=== PATIENT | female | born 1950 | race African-American/Black ===

== ENCOUNTER → 2019-01-28 | Day surgery (SDC) | payer MEDICARE ==
[2019-01-26 10:47] LABS: BASOPHILS % 0.4 % (0.0-1.0); EOSINOPHILS # (AUTO) 0.2 (0.0-0.4); HEMATOCRIT 39.8 % (34.2-44.1); HEMOGLOBIN 12.6 g/dL (12.0-16.0); LYMPHOCYTES # (AUTO) 1.8 (1.0-3.2); LYMPHOCYTES % 33.3 % (18.0-39.1); MEAN CORPUSCULAR HEMOGLOBIN 27.4 pg (28-32); MEAN CORPUSCULAR HGB CONC 31.7 g/dL (31-35); MEAN CORPUSCULAR VOLUME 86.5 fL (81-99); MONOCYTES # (AUTO) 0.5 (0.2-0.8); MONOCYTES % 9.3 % (4.4-11.3); NEUTROPHILS # (AUTO) 2.9 (2.1-6.9); NEUTROPHILS % 52.6 % (38.7-80.0); PLATELET COUNT 221 x10e3/uL (140-360); RED CELL DISTRIBUTION WIDTH 16.1 % (11.7-14.4)
[2019-01-26 11:05] LABS: INR 0.9; PROTHROMBIN TIME 12.6 seconds (11.9-14.5)
[2019-01-26 11:12] LABS: ALBUMIN 3.3 g/dL (3.5-5.0); ALBUMIN/GLOBULIN RATIO 0.9 (0.8-2.0); ANION GAP 10.7 mmol/L (8-16); CALCIUM 9.7 mg/dL (8.4-10.2); CREATININE, SERUM 1.19 mg/dL (0.57-1.11); POTASSIUM 4.7 mmol/L (3.5-5.1)
--- NOTE | 2019-01-26 11:49 | NUR ---
Dr. Cher Wilde notified of creatinine 1.19 and eGFR of 55. No new orders at this time.
[~2019-01-28] VITALS: Ht 175.3 cm; Wt 117.9 kg
[2019-01-28] VITALS (12 sets, daily range): BP systolic 98–133; BP diastolic 57–77
[~2019-01-28] MED LIST: ASPERCREME 1035.4 GM TOP; ASPIR 8181 MG PO; ATORVASTATIN CA40 MG PO; CALTRATE 600 W1 EACH PO; CENTRUM SILVER1 EAC3 PO; CITALOPRAM HBR40 MG PO; CLOPIDOGREL BISULFATE 75 MG TAB ONE; FENTANYL CITRATE/PF 100MCG/2 ML INJ ONE; GABAPENTIN300 MG PO; GLIMEPIRIDE2 MG PO; HEPARIN SOD (PORCINE) 1000 UNIT/ML 30ML ONE; HEPARIN SOD/SOD CHLORIDE 2,000 ML ONE; IOPAMIDOL 300MG/ML 100 ML INFUS..BTL IV ONE; IOPAMIDOL 370 MG/ML 200 ML INFUS..BTL INJ ONE; LEVOTHYROXINE75 MCG PO; LIDOCAINE HCL 2% LOCAL 20 ML VIAL ONE; LISINOPRIL5 MG PO; MIDAZOLAM HCL 2 MG/2 ML VIAL ONE; NITROGLYCERIN/D5W 200 MCG/ML 250 ML ONE; OMEPRAZOLE20 M1 PO; OXYCODONE HCL20 M1 PO; PANTOPRAZOLE SO40 MG PO; SODIUM CHLORIDE 0.9% 1000ML 1,000 ML ONE; THERA GESIC CRE TP; TRAZODONE HCL100 MG PO; ULTRAM 50MG50 MG PO; VICKS VAPORUB O50 GM TOP; [UNRECOGNIZED DRUG - OTHER]
--- OUTSIDE RECORDS SUMMARY | 2019-01-28 06:18 | XMS REPORT | Clinical Summary ---
Author Author Austin Jain Organization [facility] Address Unknown Phone Unavailable Care Team Providers Care Eyeglass Inspector Name Role Phone Dhiraj Wilde MD PCP Allergies Comments Active Allergy Reactions Severity Noted Date Codeine 02/18/2018 Hydrocodone-Acetaminophen GI 02/17/2018 Intolerance Medications End Date Status Medication Sig Dispensed Refills Start Date Active gabapentin (NEURONTIN) Take 600 mg 0 300 mg capsule by mouth 3 (three) times a day. Active glimepiride (AMARYL) 2 MG Take 2 mg by 0 tablet mouth daily before breakfast. Active citalopram (CeleXA) 40 MG Take 40 mg by 0 tablet mouth every morning. Active pantoprazole (PROTONIX) Take 40 mg by 0 40 MG EC tablet mouth every morning. Active levothyroxine (SYNTHROID, Take 75 mcg 0 LEVOXYL) 75 mcg tablet by mouth every morning. Active lisinopril Take 5 mg by 0 (PRINIVIL,ZESTRIL) 5 mg mouth every tablet morning. Active multivitamin (THERAGRAN) Take 1 tablet 0 tablet by mouth every morning. Active calcium carbonate Chew 1 tablet 0 (CALCIUM 500) 500 mg every calcium (1,250 mg) morning. chewable tablet Active aspirin (ECOTRIN) 81 MG Take 81 mg by 0 enteric coated tablet mouth daily. Active traZODone (DESYREL) 100 Take 100 mg 0 MG tablet by mouth nightly. Active atorvastatin (LIPITOR) 40 Take 40 mg by 0 MG tablet mouth daily. Active oxyCODone (ROXICODONE) 5 Take 5 mg by 0 MG immediate release mouth 4 tablet (four) times a day as needed. Active traMADol (ULTRAM) 50 mg Take 50 mg by 0 tablet mouth 4 (four) times a day as needed. 02/18/2018 Discontinued (Med List Cleanup) levothyroxine (SYNTHROID, Take 100 mcg 0 LEVOXYL) 100 mcg tablet by mouth daily. 02/20/2018 Discontinued (Stop Taking at Discharge) traZODone (DESYREL) 100 Take 200 mg 0 MG tablet by mouth nightly. 02/20/2018 Discontinued (Stop Taking at Discharge) traMADol (ULTRAM) 50 mg Take 50 mg by 0 tablet mouth 2 (two) times a day. 02/18/2018 Discontinued (Med List Cleanup) lisinopril Take 10 mg by 0 (PRINIVIL,ZESTRIL) 10 mg mouth daily. tablet 02/20/2018 Discontinued (Stop Taking at Discharge) nitrofurantoin, Take 100 mg 0 macrocrystal-monohydrate, by mouth 2 8 (MACROBID) 100 MG capsule (two) times a day. For 7 days 02/20/2018 Discontinued traMADol (ULTRAM) 50 mg Take 1 tablet 40 tablet 1 tablet (50 mg total) 8 by mouth every 6 (six) hours as needed for moderate pain for up to 10 days. 03/02/2018 traMADol (ULTRAM) 50 mg Take 1 tablet 30 tablet 0 tablet (50 mg total) 8 by mouth every 8 (eight) hours as needed for moderate pain for up to 10 days. 12/23/2018 Discontinued (Med List Cleanup) atorvastatin (LIPITOR) 10 Take 10 mg by 0 MG tablet mouth daily. Active Problems Problem Noted Date Chest pain 12/23/2018 Fever 02/17/2018 Encounters Care Team Description Date Type Specialty Jarred Bledsoe MD Allencherril, Paul Joseph, MD Chest pain, unspecified type (Primary Dx) 12/23/2018 Emergency Emergency Medicine - 12/25/2018 Sam Asif DO Chest pain, unspecified type (Primary Dx) 09/18/2018 Emergency Emergency Medicine 09/18/2018 Travel Jarred Bledsoe MD Allencherril, Aris Leon MD Fever, unspecified fever cause (Primary Dx); Hepatitis; Generalized pain 02/17/2018 Emergency General Internal Medicine - 02/20/2018 after 01/27/2018 Immunizations Name Administration Dates Next Due FLUCELVAX QUAD PF (0.5mL 02/20/2018 syringe) Pneumococcal Conjugate 02/20/2018 13-Valent Family History Medical History Relation Name Comments Cancer Brother Hypertension Mother Cancer Sister Relation Name Status Comments Brother Mother Sister Social History Date Tobacco Use Types Packs/Day Years Used Former Smoker Smokeless Tobacco: Never Used Comments: 15-20 years Quit Drinks/Week oz/Week Comments Alcohol Use No Sex Assigned at Date Recorded Not on file Industry Job Start Date Occupation Not on file Not on file Not on file Travel End Travel History Travel Start No recent travel history available. Last Filed Vital Signs Reading Time Taken Comments Vital Sign 141/63 12/24/2018 11:15 AM CDT Blood Pressure 64 12/24/2018 11:15 AM CDT Pulse 36.8 C (98.2 F) 12/24/2018 11:15 AM CDT Temperature 16 12/24/2018 11:15 AM CDT Respiratory Rate 100% 12/24/2018 11:15 AM CDT Oxygen Saturation - - Inhaled Oxygen Concentration 118 kg (260 lb) 12/23/2018 12:17 PM CDT Weight 175.3 cm (5' 9") 12/23/2018 12:17 PM CDT Height 38.4 12/23/2018 12:17 PM CDT Body Mass Index Plan of Treatment Health Maintenance Due Date Last Done Comments BREAST CANCER SCREENING 2001 COLONOSCOPY SCREENING 2001 SHINGLES VACCINES (#1) 2001 INFLUENZA VACCINE 01/08/2019 02/20/2018 65+ PNEUMOCOCCAL VACCINE 02/20/2019 02/20/2018 (2 of 2 - PPSV23) Procedures Comments Procedure Name Priority Date/Time Associated Diagnosis POC GLUCOSE Routine 12/24/2018 11:15 AM CDT ESTIMATED GFR Routine 12/24/2018 7:50 AM CDT BASIC METABOLIC PANEL Routine 12/24/2018 7:50 AM CDT HC COMPLETE BLD COUNT Routine 12/24/2018 W/AUTO DIFF 7:50 AM CDT TROPONIN Timed 12/24/2018 7:50 AM CDT POC GLUCOSE Routine 12/24/2018 5:48 AM CDT ECG 12-LEAD Routine 12/24/2018 12:22 AM CDT TROPONIN Timed 12/23/2018 9:54 PM CDT ECG 12-LEAD Routine 12/23/2018 8:49 PM CDT POC GLUCOSE Routine 12/23/2018 8:45 PM CDT TROPONIN Timed 12/23/2018 6:16 PM CDT POC GLUCOSE Routine 12/23/2018 5:32 PM CDT XR CHEST 2 VW STAT 12/23/2018 3:37 PM CDT XR KNEE 4+ VW RIGHT STAT 12/23/2018 3:37 PM CDT US DUPLEX VENOUS LOWER STAT 12/23/2018 EXTREMITY RIGHT 2:56 PM CDT ECG 12-LEAD STAT 12/23/2018 2:22 PM CDT ESTIMATED GFR STAT 12/23/2018 2:10 PM CDT B NATRIURETIC PEPTIDE STAT 12/23/2018 2:10 PM CDT TROPONIN STAT 12/23/2018 2:10 PM CDT COMPREHENSIVE METABOLIC STAT 12/23/2018 PANEL 2:10 PM CDT HC COMPLETE BLD COUNT STAT 12/23/2018 W/AUTO DIFF 2:10 PM CDT TROPONIN Timed 09/18/2018 6:15 PM CDT XR CHEST 2 VW STAT 09/18/2018 2:46 PM CDT ESTIMATED GFR STAT 09/18/2018 1:50 PM CDT B NATRIURETIC PEPTIDE STAT 09/18/2018 1:50 PM CDT TROPONIN STAT 09/18/2018 1:50 PM CDT COMPREHENSIVE METABOLIC STAT 09/18/2018 PANEL 1:50 PM CDT HC COMPLETE BLD COUNT STAT 09/18/2018 W/AUTO DIFF 1:50 PM CDT ECG ED PRELIMINARY Routine 09/18/2018 INTERPRETATION 12:54 PM CDT ECG 12-LEAD STAT 09/18/2018 12:29 PM CDT HEPATIC FUNCTION PANEL Routine 02/20/2018 6:48 AM CDT POC GLUCOSE Routine 02/20/2018 6:27 AM CDT POC GLUCOSE Routine 02/19/2018 9:42 PM CDT US ABDOMEN COMPLETE STAT 02/19/2018 9:38 PM CDT POC GLUCOSE Routine 02/19/2018 4:02 PM CDT POC GLUCOSE Routine 02/19/2018 11:24 AM CDT ESTIMATED GFR Routine 02/19/2018 8:52 AM CDT COMPREHENSIVE METABOLIC Routine 02/19/2018 PANEL 8:52 AM CDT POC GLUCOSE Routine 02/19/2018 6:12 AM CDT POC GLUCOSE Routine 02/18/2018 9:14 PM CDT POC GLUCOSE Routine 02/18/2018 5:50 PM CDT HEPATITIS ACUTE PANEL Routine 02/18/2018 7:[address] ABDOMEN PELVIS WO STAT 02/18/2018 CONTRAST 4:59 AM CDT ECG ED PRELIMINARY Routine 02/17/2018 INTERPRETATION 9:17 PM CDT HCG QUALITATIVE, URINE STAT 02/17/2018 SCREEN 8:01 PM CDT URINALYSIS SCREEN AND STAT 02/17/2018 MICROSCOPY, WITH REFLEX 8:01 PM CDT TO CULTURE ZZESTIMATED GFR STAT 02/17/2018 7:47 PM CDT LIPASE LEVEL STAT 02/17/2018 7:47 PM CDT COMPREHENSIVE METABOLIC STAT 02/17/2018 PANEL 7:47 PM CDT HC COMPLETE BLD COUNT STAT 02/17/2018 W/AUTO DIFF 7:47 PM CDT ECG 12-LEAD STAT 02/17/2018 7:13 PM CDT PARTIAL THROMBOPLASTIN STAT 02/17/2018 TIME (PTT) 7:08 PM CDT PROTHROMBIN TIME WITH INR STAT 02/17/2018 7:08 PM CDT URINE CULTURE STAT 02/17/2018 7:08 PM CDT after 01/27/2018 Results * POC glucose (12/24/2018 11:15 AM CDT) Only the most recent of 11 results within the time period is included. [facility] POC glucose 121 (H) 65 - 100 mg/dL [place] Comment: JESSICA Meter ID: [id number] [place] Regional Transportation Manager: [facility] Specimen Performing Organization Address City/State/Zipcode Phone Number [facility] [place] [place] DEPARTMENT OF [address] [place] [id number] PATHOLOGY AND GENOMIC MEDICINE [place] JESSICA [place] [address] * Estimated GFR (12/24/2018 7:50 AM CDT) Only the most recent of 4 results within the time period is included. [facility] Estimated GFR 49 (A) mL/min/1.73 m2 [place] Comment: JESSICA [facility] G1 >=90 Normal or high G2 60-89Mildly decreased C2g24-02 Mildly to moderately decreased T9b22-64 Moderately to severely decreased G4 15-29Severely decreased G5 <15Kidney failure The eGFR was calculated using the Chronic Kidney Disease Epidemiology Collaboration (CKD-EPI) equation. Interpretation is based on recommendations of the National Kidney Foundation-Kidney Disease Outcomes Quality Initiative (NKF-KDOQI) published in 2014. Specimen Plasma specimen Performing Organization Address City/State/Zipcode Phone Number [facility] [place] [place] DEPARTMENT OF [address] [place] [address] PATHOLOGY AND GENOMIC MEDICINE [facility] [address] [place] [address] * Troponin (12/24/2018 7:50 AM CDT) Only the most recent of 6 results within the time period is included. [facility] Troponin <0.006 0.000 - 0.040 ng/mL [place] Comment: [facility] changed methodology effective: HOSPITAL 10/14/2018 at 10:00 am The new method has a 99th percentile cutoff of 0.040 ng/mL Specimen Plasma specimen Performing Organization Address City/[facility] Phone Number [facility] OF [address] [place] [address] PATHOLOGY AND GENOMIC MEDICINE [address] * CBC with platelet and differential (12/24/2018 7:50 AM CDT) Only the most recent of 4 results within the time period is included. [facility] WBC 5.4 4.2 - 11.0 k/uL [facility] RBC 4.96 4.04 - 5.86 m/uL [facility] HGB 13.2 11.5 - 15.3 g/dL [facility] HCT 41.8 34.0 - 45.0 % [facility] MCV 84.3 80.0 - 98.0 fL [facility] MCH 26.6 (L) 27.0 - 34.0 pg [facility] MCHC 31.6 31.5 - 36.5 g/dL [facility] RDW - SD 45.8 37.0 - 51.0 fL [facility] MPV 9.8 7.4 - 10.4 fL [facility] Platelet count 255 150 - 400 k/uL [facility] Nucleated RBC 0.00 /100 WBC [facility] Neutrophils 59.2 36.0 - 66.0 % [facility] Lymphocytes 26.7 24.0 - 44.0 % [facility] Monocytes 10.5 (H) 0.0 - 6.0 % [facility] Eosinophils 3.0 0.0 - 6.0 % [facility] Basophils 0.4 0.0 - 1.2 % [facility] Immature 0.2 0.0 - 1.0 % [place] granulocytes [facility] Specimen Blood Performing Organization Address City/[facility] Phone Number [facility] [place] [place] [address] PATHOLOGY AND GENOMIC MEDICINE [address] * Basic metabolic panel (12/24/2018 7:50 AM CDT) Sodium 141 135 - 150 mEq/L [facility] Potassium 4.2 3.5 - 5.0 mEq/L [facility] Chloride 103 98 - 112 mEq/L [facility] CO2 30 24 - 31 mmol/L [facility] Anion gap 8@ANIO 7 - 15 mEq/L [facility] BUN 15 7 - 18 mg/dL [facility] Creatinine 1.30 (H) 0.50 - 0.90 mg/dL [facility] Glucose 127 (H) 65 - 100 mg/dL [facility] Calcium 9.8 8.8 - 10.2 mg/dL [facility] Specimen Plasma specimen Performing Organization Address City/[facility]/[place] [address] PATHOLOGY AND GENOMIC MEDICINE [address] * ECG 12 lead (12/24/2018 12:22 AM CDT) Only the most recent of 5 results within the time period is included. Ventricular 67 [facility] rate Atrial rate 67 [facility] CA interval 174 [facility] QRSD interval 70 [facility] QT interval 408 [facility] QTC interval 431 [facility] P axis 1 64 [facility] QRS axis 1 49 [facility] T wave axis 48 [facility] EKG impression Normal sinus rhythm-Normal [facility] ECG-In automated comparison with ECG of 23-DEC-2018 20:49,-No significant change was found- Specimen Narrative Performed At Performing Organization Address City/[facility] Phone Number [facility] [address] [place] [address] * XR Chest 2 Vw (12/23/2018 3:37 PM CDT) Only the most recent of 2 results within the time period is included. Specimen Narrative Performed At EXAMINATION:XR CHEST 2 VW [facility] CLINICAL HISTORY: chest pain COMPARISON:09/18/2018. FINDINGS: Two views of the chest demonstrate normal cardiomediastinal silhouette. Pulmonary vasculature is within normal limits. No consolidation or pleural effusions identified. There is no evidence of pneumothorax. Regional osseous structures is unremarkable. IMPRESSION: No radiographic evidence of acute cardiopulmonary process or pneumonia. [id number] Procedure Note Hm Interface, Radiology Results Incoming - 12/23/2018 3:42 PM CDT EXAMINATION: XR CHEST 2 VW CLINICAL HISTORY: chest pain COMPARISON: 09/18/2018. FINDINGS: Two views of the chest demonstrate normal cardiomediastinal silhouette. Pulmonary vasculature is within normal limits. No consolidation or pleural effusions identified. There is no evidence of pneumothorax. Regional osseous structures is unremarkable. IMPRESSION: No radiographic evidence of acute cardiopulmonary process or pneumonia. [id number] Performing Organization Address City/[facility]/Zipcode Phone Number [facility] [address] [place] [address] * XR Knee 4+ Vw Right (12/23/2018 3:37 PM CDT) Specimen Narrative Performed At XR KNEE 4VW RIGHT [facility] CLINICAL INDICATION:knee pain COMPARISON:None. IMPRESSION: No acute fracture or traumatic injury is identified in the knee. There is no joint effusion or significant osteoarthritis. Periarticular soft tissues are unremarkable for age. *[id number] Procedure Note Interface, Radiology Results Incoming - 12/23/2018 3:42 PM CDT XR KNEE 4 VW RIGHT CLINICAL INDICATION: knee pain COMPARISON: None. IMPRESSION: No acute fracture or traumatic injury is identified in the knee. There is no joint effusion or significant osteoarthritis. Periarticular soft tissues are unremarkable for age. *[id number] Performing Organization Address City/State/Zipcode Phone Number [facility] [address] [place] [address] * Us duplex venous lower extremity (12/23/2018 2:56 PM CDT) Specimen Narrative Performed At EXAMINATION:US DUPLEX VENOUS LOWER EXTREMITY RIGHT [facility] CLINICAL HISTORY:leg pain swelling COMPARISON:None. TECHNIQUE:Grayscale, color Doppler, and spectral waveform analysis of the right lower extremity deep venous system was performed. The common femoral, superficial femoral, proximal deep femoral, greater saphenous, and popliteal veins were evaluated. The calf veins were also evaluated. FINDINGS: RIGHT LOWER EXTREMITY Common Femoral Vein: No evidence of deep venous thrombosis. There is good compressibility and response to augmentation. Profunda Femoral Vein: No evidence of deep venous thrombosis. There is good compressibility and response to augmentation. Greater Saphenous Vein: No evidence of deep venous thrombosis. There is good compressibility and response to augmentation. Superficial Femoral Vein: No evidence of deep venous thrombosis. There is good compressibility and response to augmentation. Popliteal Vein: No evidence of deep venous thrombosis. There is good compressibility and response to augmentation. Calf Veins: The calf veins are patent. Romero's Cyst: No Romero's Cyst. Other findings: None Left Common Femoral Vein: No evidence of deep venous thrombosis. There is good compressibility and response to augmentation. IMPRESSION: 1.Normal exam. No right lower extremity deep venous thrombosis. [id number] Procedure Note Interface, Radiology Results Incoming - 12/23/2018 3:00 PM CDT EXAMINATION: US DUPLEX VENOUS LOWER EXTREMITY RIGHT CLINICAL HISTORY: leg pain swelling COMPARISON: None. TECHNIQUE: Grayscale, color Doppler, and spectral waveform analysis of the right lower extremity deep venous system was performed. The common femoral, superficial femoral, proximal deep femoral, greater saphenous, and popliteal veins were evaluated. The calf veins were also evaluated. FINDINGS: RIGHT LOWER EXTREMITY Common Femoral Vein: No evidence of deep venous thrombosis. There is good compressibility and response to augmentation. Profunda Femoral Vein: No evidence of deep venous thrombosis. There is good compressibility and response to augmentation. Greater Saphenous Vein: No evidence of deep venous thrombosis. There is good compressibility and response to augmentation. Superficial Femoral Vein: No evidence of deep venous thrombosis. There is good compressibility and response to augmentation. Popliteal Vein: No evidence of deep venous thrombosis. There is good compressibility and response to augmentation. Calf Veins: The calf veins are patent. Romero's Cyst: No Romero's Cyst. Other findings: None Left Common Femoral Vein: No evidence of deep venous thrombosis. There is good compressibility and response to augmentation. IMPRESSION: 1. Normal exam. No right lower extremity deep venous thrombosis. [facility]-[id number] Performing Organization Address City/State/Zipcode Phone Number [facility] [address] [place] [address] * B natriuretic peptide (12/23/2018 2:10 PM CDT) Only the most recent of 2 results within the time period is included. Pathologist [facility] [place] BNP 18 0 - 100 pg/mL [facility] Specimen Blood Performing Organization Address City/State/Zipcode Phone Number [facility] [place] [place] DEPARTMENT OF [address] [place] [address] PATHOLOGY AND GENOMIC MEDICINE [address] * Comprehensive metabolic panel (12/23/2018 2:10 PM CDT) Only the most recent of 4 results within the time period is included. Pathologist [facility] [place] Sodium 142 135 - 150 mEq/L [facility] Potassium 3.9 3.5 - 5.0 mEq/L [facility] Chloride 102 98 - 112 mEq/L [facility] CO2 30 24 - 31 mmol/L [facility] Anion gap 10@ANIO 7 - 15 mEq/L [facility] BUN 13 7 - 18 mg/dL [facility] Creatinine 1.30 (H) 0.50 - 0.90 mg/dL [facility] Glucose 128 (H) 65 - 100 mg/dL [facility] Calcium 9.6 8.8 - 10.2 mg/dL [facility] Protein 7.8 6.3 - 8.3 g/dL [facility] Albumin 3.8 3.5 - 5.0 g/dL [facility] A/G ratio 1.0 0.7 - 3.8 [facility] Alkaline 105 (H) 0 - 104 U/L [place] phosphatase [facility] AST 23 10 - 35 U/L [facility] ALT 15 5 - 50 U/L [facility] Total bilirubin 0.7 0.2 - 1.2 mg/dL [facility] Specimen Plasma specimen Performing Organization Address City/State/[facility] Phone Number [facility] [place] [place] DEPARTMENT OF [facility] [place] [address] PATHOLOGY AND GENOMIC MEDICINE [address] * ECG ED Preliminary Interpretation - Not an Order (09/18/2018 12:54 PM CDT) Only the most recent of 2 results within the time period is included. Narrative Performed At Sam Asif DO 09/25/2018 12:47 AM ECG ED Preliminary Interpretation - Not an Order Performed by: Sam Asif DO Authorized by: Sam Asif DO ECG reviewed by ED Physician in the absence of a precision honer: yes Interpretation: Interpretation: normal Rate: ECG rate:85 ECG rate assessment: normal Rhythm: Rhythm: sinus rhythm Ectopy: Ectopy: none QRS: QRS axis:Normal QRS intervals:Normal Conduction: Conduction: normal ST segments: ST segments:Normal T waves: T waves: normal * Hepatic function panel (02/20/2018 6:48 AM CDT) Albumin 2.8 (L) 3.5 - 5.0 g/dL [facility] [place] [place] DEPARTMENT OF PATHOLOGY AND GENOMIC MEDICINE Total bilirubin 1.0 0.2 - 1.2 mg/dL [facility] [place] [place] DEPARTMENT OF PATHOLOGY AND GENOMIC MEDICINE Bilirubin 0.4 0.0 - 0.4 mg/dL [facility] [place] [place] DEPARTMENT direct OF PATHOLOGY AND GENOMIC MEDICINE Alkaline 148 (H) 0 - 104 U/L [facility] [place] [place] DEPARTMENT phosphatase OF PATHOLOGY AND GENOMIC MEDICINE Protein 6.6 6.3 - 8.3 g/dL [facility] [place] [place] DEPARTMENT OF PATHOLOGY AND GENOMIC MEDICINE ALT 220 (H) 5 - 50 U/L [facility] [place] [place] DEPARTMENT OF PATHOLOGY AND GENOMIC MEDICINE AST 95 (H) 10 - 35 U/L [facility] [place] [place] DEPARTMENT OF PATHOLOGY AND GENOMIC MEDICINE Specimen Plasma specimen Performing Organization Address City/State/Zipcode Phone Number [facility] [place] [place] DEPARTMENT OF [address] [place] [address] PATHOLOGY AND GENOMIC MEDICINE * US Abdomen Complete (02/19/2018 9:38 PM CDT) Specimen Narrative Performed At EXAM: US ABDOMEN COMPLETE [facility] CLINICAL DATA:Hepatitis (non A), Jaundiceabd painfever or biliary surgery or gallstones COMPARISON: CT from 02/18/2018. FINDINGS: LIVER:The liver demonstrates normal echogenicity without focal mass or intrahepatic biliary ductal dilatation. MPV:Doppler evaluation of the portal vein demonstrates normal hepatopetal flow. GALLBLADDER:The gallbladder is without evidence of calculi. The gallbladder wall is not thickened and there is no pericholecystic fluid. CBD: Common bile duct is not dilated measuring 7 mm. PANCREAS:The visualized portions of the pancreas are within normal limits. SPLEEN:The spleen is homogeneous and not enlarged. KIDNEYS: There is no hydronephrosis. There are areas of cortical scarring in the right kidney better seen on recent CT. AORTA:The visualized upper abdominal aorta demonstrates no evidence of ectasia or aneurysm. IVC:The visualized portions of the inferior vena cava are unremarkable. ASCITES: No abnormal abdominal fluid collections are visualized. There is no evidence of ascites. PLEURAL EFFUSION:There are no pleural effusions. IMPRESSION: Normal abdominal ultrasound examination. [facility]-[id number] Procedure Note Interface, Radiology Results Incoming - 02/19/2018 11:34 PM CDT EXAM: US ABDOMEN COMPLETE CLINICAL DATA: Hepatitis (non A), Jaundice abd pain fever or biliary surgery or gallstones COMPARISON: CT from 02/18/2018. FINDINGS: LIVER: The liver demonstrates normal echogenicity without focal mass or intrahepatic biliary ductal dilatation. MPV: Doppler evaluation of the portal vein demonstrates normal hepatopetal flow. GALLBLADDER: The gallbladder is without evidence of calculi. The gallbladder wall is not thickened and there is no pericholecystic fluid. CBD: Common bile duct is not dilated measuring 7 mm. PANCREAS: The visualized portions of the pancreas are within normal limits. SPLEEN: The spleen is homogeneous and not enlarged. KIDNEYS: There is no hydronephrosis. There are areas of cortical scarring in the right kidney better seen on recent CT. AORTA: The visualized upper abdominal aorta demonstrates no evidence of ectasia or aneurysm. IVC: The visualized portions of the inferior vena cava are unremarkable. ASCITES: No abnormal abdominal fluid collections are visualized. There is no evidence of ascites. PLEURAL EFFUSION: There are no pleural effusions. IMPRESSION: Normal abdominal ultrasound examination. [facility]-[id number] Performing Organization Address City/[facility] Phone Number [facility] [address] [place] [address] * Hepatitis acute panel (02/18/2018 7:31 AM CDT) Hepatitis A IgM Non-reactive Non-reactive [facility] DEPARTMENT OF PATHOLOGY AND GENOMIC MEDICINE Hepatitis B Non-reactive Non-reactive [facility] DEPARTMENT core IgM OF PATHOLOGY AND GENOMIC MEDICINE Hepatitis B Non-reactive Non-reactive [facility] DEPARTMENT surface Ag OF PATHOLOGY AND GENOMIC MEDICINE Hepatitis C Ab Non-reactive Non-reactive [facility] DEPARTMENT OF PATHOLOGY AND GENOMIC MEDICINE Specimen Serum Performing Organization Address [facility] Phone Number [facility] DEPARTMENT OF [address] [place], [place] [phone] PATHOLOGY AND GENOMIC MEDICINE * CT Abdomen Pelvis Wo Contrast (02/18/2018 4:59 AM CDT) Specimen Narrative Performed At EXAMINATION:CT ABDOMEN PELVIS WO CONTRAST RADIANT CLINICAL HISTORY:pain cholestasis TECHNIQUE: Multiple axial images of the abdomen and pelvis were obtained without intravenous administration of iodinated contrast. Sagittal and coronal computerized reformatted images were also obtained. The lack of intravenous contrast reduces the sensitivity of detecting solid organ disease. CT imaging was performed with iterative reconstruction technique and/or automated exposure control to reduce radiation dose. COMPARISON:None. IMPRESSION: Mild bibasilar atelectasis/scarring. Patient is status post cholecystectomy. Liver, spleen, pancreas, adrenal glands are normal. Areas of cortical thinning are seen of the kidneys bilaterally, compatible with sequelae of previous insults. No hydronephrosis or hydroureter. The bladder is normal. No free intraperitoneal fluid or air. Small hiatal hernia. Diverticulosis is seen without diverticulitis. No gastrointestinal tract obstruction. No acute osseous abnormalities. Mild degenerative change of the right hip. CONCLUSION: No emergent findings. [facility]-[id number] Procedure Note Interface, Radiology Results Incoming - 02/18/2018 5:12 AM CDT EXAMINATION: CT ABDOMEN PELVIS WO CONTRAST CLINICAL HISTORY: pain cholestasis TECHNIQUE: Multiple axial images of the abdomen and pelvis were obtained without intravenous administration of iodinated contrast. Sagittal and coronal computerized reformatted images were also obtained. The lack of intravenous contrast reduces the sensitivity of detecting solid organ disease. CT imaging was performed with iterative reconstruction technique and/or automated exposure control to reduce radiation dose. COMPARISON: None. IMPRESSION: Mild bibasilar atelectasis/scarring. Patient is status post cholecystectomy. Liver, spleen, pancreas, adrenal glands are normal. Areas of cortical thinning are seen of the kidneys bilaterally, compatible with sequelae of previous insults. No hydronephrosis or hydroureter. The bladder is normal. No free intraperitoneal fluid or air. Small hiatal hernia. Diverticulosis is seen without diverticulitis. No gastrointestinal tract obstruction. No acute osseous abnormalities. Mild degenerative change of the right hip. CONCLUSION: No emergent findings. [facility]-[id number] Performing Organization Address City/State/Zipcode Phone Number [facility] [address] [place] [address] * Urinalysis screen and microscopy, with reflex to culture (02/17/2018 8:01 PM CDT) Specimen site Clean catch [facility] [place] [place] DEPARTMENT OF PATHOLOGY AND GENOMIC MEDICINE Color, UA Brooke [facility] [place] [place] DEPARTMENT OF PATHOLOGY AND GENOMIC MEDICINE Appearance, UA Clear [facility] [place] [place] DEPARTMENT OF PATHOLOGY AND GENOMIC MEDICINE Specific 1.015 1.001 - 1.035 [facility] [place] [place] DEPARTMENT gravity, [facility] PATHOLOGY AND GENOMIC MEDICINE pH, UA 7.0 5.0 - 8.5 [facility] [place] [place] DEPARTMENT OF PATHOLOGY AND GENOMIC MEDICINE Protein, UA 1+ (A) Negative [facility] [place] [place] DEPARTMENT OF PATHOLOGY AND GENOMIC MEDICINE Glucose, UA Negative Negative [facility] [place] [place] DEPARTMENT OF PATHOLOGY AND GENOMIC MEDICINE Ketones, UA Negative Negative [facility] [place] [place] DEPARTMENT OF PATHOLOGY AND GENOMIC MEDICINE Bilirubin, UA Negative Negative [facility] [place] [place] DEPARTMENT OF PATHOLOGY AND GENOMIC MEDICINE Blood, UA Negative Negative [facility] [place] [place] DEPARTMENT OF PATHOLOGY AND GENOMIC MEDICINE Nitrite, UA Negative Negative [facility] [place] [place] DEPARTMENT OF PATHOLOGY AND GENOMIC MEDICINE Urobilinogen, 4.0 (A) <2.0 [facility] [place] [place] DEPARTMENT UA OF PATHOLOGY AND GENOMIC MEDICINE Leukocyte Negative Negative [facility] [place] [place] DEPARTMENT esterase, UA OF PATHOLOGY AND GENOMIC MEDICINE Epithelial Many /HPF [facility] [place] [place] DEPARTMENT cells, UA OF PATHOLOGY AND GENOMIC MEDICINE WBC, UA 1 0 - 5 /HPF [facility] [place] [place] DEPARTMENT OF PATHOLOGY AND GENOMIC MEDICINE RBC, UA 5 (A) 0 - 5 /HPF [facility] [place] [place] DEPARTMENT OF PATHOLOGY AND GENOMIC MEDICINE Bacteria, UA None seen None seen [facility] [place] [place] DEPARTMENT OF PATHOLOGY AND GENOMIC MEDICINE Yeast, UA None seen [facility] [place] [place] DEPARTMENT OF PATHOLOGY AND GENOMIC MEDICINE Yeast with None seen [facility] [place] [place] DEPARTMENT pseudohyphae, OF PATHOLOGY UA AND GENOMIC MEDICINE Specimen Urine Performing Organization Address City/State/[facility] [place] [address] PATHOLOGY AND GENOMIC MEDICINE * hCG qualitative, urine screen (02/17/2018 8:01 PM CDT) Pathologist [facility] [place] hCG Negative Negative [facility] [place] [place] DEPARTMENT qualitative, Comment: OF PATHOLOGY urine The manufacturers stated AND GENOMIC sensitivity of HcG test for MEDICINE serum is >/=10 mIU/ml and urine is >/=20mIU/ml. Specimen Urine Performing Organization Address [facility] [place] [address] PATHOLOGY AND GENOMIC MEDICINE * Estimated GFR (02/17/2018 7:47 PM CDT) [facility] GFR Non Af Amer 35 (A) mL/min/1.73 m2 [facility] [place] [place] DEPARTMENT OF PATHOLOGY AND GENOMIC MEDICINE GFR Af Amer 42 (A) mL/min/1.73 m2 [facility] [place] [place] DEPARTMENT Comment: OF PATHOLOGY Chronic kidney disease: <60 AND GENOMIC mL/min/1.73m2 MEDICINE Kidney failure: <15 mL/min/1.73m2 The estimated GFR is calculated from the IDMS-traceable Modification of Diet in Renal Disease Equation. The accuracy of the calculation is poor when the creatinine is normal. Calculated values >90 mL/min/1.73m2 are not reported. This equation has not been validated in children (<18 years), women, the elderly (>70 years), or ethnic groups other than Caucasians and Americans. Specimen Plasma specimen Performing Organization Address City/State/[place] [address] PATHOLOGY AND [facility] MEDICINE * Lipase level (02/17/2018 7:47 PM CDT) Pathologist [facility] [place] Lipase 14 13 - 60 U/L [facility] [place] [place] DEPARTMENT OF PATHOLOGY AND GENOMIC MEDICINE Specimen Plasma specimen Performing Organization Address City/State/Zipcode Phone Number [address] [place] [address] PATHOLOGY AND GENOMIC MEDICINE * Partial thromboplastin time, activated (02/17/2018 7:08 PM CDT) Pathologist [facility] [place] PTT 30.0 23.0 - 36.0 sec [facility] [place] [place] DEPARTMENT Comment: OF PATHOLOGY PTT therapeutic range for AND GENOMIC unfractionated heparin is MEDICINE 61.0-112.0 seconds which corresponds to Anti-Xa 0.3-0.7 U/ml. Note:Change in Panic Value The PTT Panic Value is changing from 110 sec. to 100 sec. due to new instrumentation and reagents. Correlation studies have been performed to validate this result. Specimen Blood Performing Organization Address City/State/Zipcode Phone Number [facility] [address] [facility]. [place] [phone] PATHOLOGY AND GENOMIC MEDICINE * Prothrombin time with INR (02/17/2018 7:08 PM CDT) Pathologist [facility] [place] Prothrombin 14.6 12.0 - 15.0 sec [facility] [place] [place] DEPARTMENT time OF PATHOLOGY AND GENOMIC MEDICINE INR 1.12 0.92 - 1.12 [facility] [place] [place] DEPARTMENT Comment: OF PATHOLOGY For patients on anticoagulant AND GENOMIC therapy, reference ranges MEDICINE below: Indication: INR Value Treatment of Venous Thrombosis, 2.0-3.0 pulmonary emboli, or prophylaxis of a venous thrombosis, or systemic emboli. High dose, high risk patients 3.0-4.5 with mechanical valves. NOTE:INR values over 3.0 are sometimes associated with gastrointestinal hemorrhage, especially values over 4.0. Specimen Blood Performing Organization Address City/[facility]/Zipcode Phone Number [facility] [address] [place] [phone] PATHOLOGY AND GENOMIC MEDICINE * Urine culture (02/17/2018 7:08 PM CDT) Pathologist [facility] [place] Urine culture SEE COMMENTComment: [facility] [place] [place] DEPARTMENT Bacteriuria screen negative. 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
--- NOTE | 2019-01-28 11:02 | NUR ---
1102 bedside report received from CATINA Kilpatrick. Alert oriented and appropriate, PERRLA, respirations even and unlabored to room air. Pulses x4 extremities equal and strong. Pedal pulses PT/DP X4 Cap fill brisk < 3 sec. Bilateral Mynx sites dry and intact No gross issues pain,pallor pressure or dysrhythmia.Dwon till 1345 ok to dc at 1500pm Skin warm and dry integrity appears D/I. IV 20g to rt hand iv infusing via iv controller at 100cchr. Presents healthy w/o s/s of infiltration or complaint. Abdomen soft and supple. pt offered toileting, denies need to urinate or defecate. No personal affects with patient. Family grandson Hung . Pt and family verbalizes understanding of POC.. Currently w/o complaint of pain or need. Patient introduced to cath team and brief summary provided to team. c/o back pain unable to stay down to 1500pm. 1110 Fentanyl 25mcq ivp slowly with immediate relief for low back pain. Void in bedpan qs Assist with po intake tolerating well. ds/catina
--- NOTE | 2019-01-28 11:10 | NUR ---
1110 states pain 8/10 for low back pain had "back shots" for low back pain unable to stay HOB down or legs straight and supine. Informed Md orders 25mcq Fentanyl ivp q1hr while in recovery. Immediate recovery noted from pain.ds/rn
--- NOTE | 2019-01-28 12:10 | NUR ---
1210 c/o back pain lower bilateral Mynx sites dry and intact. Medicated 25mcq ivp slowly with immediate relief achieved. ds/rn
--- NOTE | 2019-01-28 13:10 | NUR ---
1310 8/10 c/o back pain medicated Fentynal 25mcq ivp slowly with immediate results. ds/rn
--- NOTE | 2019-01-28 14:10 | NUR ---
1410p medicated for 8/10 back pain Last dose 25mcg Fentanyl for total 100mcq Fentanyl in laboratory analyst recovery area. Bilateral Mynx sites remain intact. 1415p denies pain ok for dc at 3pm. Grandson remains at bedside and POC with dc planning completing. Tolerating po intake. Back to baseline orientation iv removed.Bilateral dressing remains intact. ds/rn
--- NOTE | 2019-01-28 15:00 | NUR ---
1500p Pt meets DC criteria. assessed for s/s of complication and presence of hematoma. warm, dry, no discolor, and pulses present. IV removed from rt hand. Distal tip appears intact. VS WNL. Pt denies pain, sob, or need at this time. Family at bedside Review of discharge paperwork and follow up instructions. Verbalized understanding. Pt to car with RN escort.With w/c. ds/rn
--- NOTE | 2019-03-02 14:53 | Operative Report ---
DATE OF PROCEDURE: 01/28/2019 SURGEON: Paolo Wilde MD INDICATION FOR PROCEDURES: Claudication. PROCEDURES PERFORMED: 1. Coronary angiography. 2. Left heart catheterization. 3. Abdominal aortography. 4. Bilateral peripheral angiography. 5. DRINK BOX MECHANIC and stenting of right common and external iliac arteries. 6. Secondary thrombectomy. 7. Femoral angiography. 8. Vascular closure device. 9. Moderate sedation 120 minutes. PROCEDURE DETAILS: The patient was brought to the cardiac catheterization laboratory in a fasting state. Bilateral groins were prepped and draped in sterile fashion. Given more severe claudication symptoms on the right side, we initially started with accessing the left common femoral artery under ultrasound and fluoroscopic guidance, although we were able to get blood return. The wire was not advancing appropriately and after the wire was advanced with a loop and 5-Frisian sheath was inserted. There was no good blood return through the sheath. I suspected subintimal entry or severe peripheral vascular disease in the area, so the sheath was removed and the Mynx vascular closure device was applied to the access site. This resulted in good hemostasis. We then decided to proceed with accessing the right common femoral artery using modified Seldinger technique and ultrasound guidance. A 6-Frisian sheath was inserted in the right common femoral artery without significant difficulty. Abdominal aortography was performed after advancing a 5-Frisian Omni Flush catheter into the abdominal aorta. This demonstrated severe 99% stenosis of the common and external iliac artery on the right side and 100% EVENT MARKETING REPRESENTATIVE of the external iliac artery on the left side extending into the common femoral artery. There were collaterals from the internal iliac artery to the common femoral artery, which provided good flow to the left lower extremity. Given the angiographic results, we decided to proceed with DRINK BOX MECHANIC and stenting of the right iliac system. The lesion was ballooned using first Ultraverse 6.0 x 100 mm balloon at nominal pressures, followed by stenting with 8.0 x 60 and 8.0 x 40 mm overlapping stents, followed by post-dilation using 8.0 x 80 mm balloon. This resulted in an excellent angiographic result without residual, dissection, thrombus, or spasm. We measured the gradient across the iliac artery and there was no significant gradient residual. Dual antiplatelet therapy was administered in the cathode builder using aspirin and Plavix loading dose. ACT near 300 was maintained throughout the procedure using IV boluses of heparin as needed. After 6-Frisian short sheath was inserted into the right common femoral artery and [place] Advantage wire was advanced into the descending aorta, coronary angiography was performed using JL4 and JR4 catheters. Multiple orthogonal views were taken of each coronary artery. Left heart catheterization was performed using a pigtail catheter. All catheters were removed over a wire. We then proceeded with intervention to the right iliac artery as described above. There was no significant coronary artery disease and left ventricular end-diastolic pressure was noted to be 10 mmHg. SIGNIFICANT FINDINGS: 1. 99% stenosis of right common and external iliac. 2. 100% EVENT MARKETING REPRESENTATIVE of the left external iliac. 3. 100% EVENT MARKETING REPRESENTATIVE of the right anterior tibial. GRAFTS AND IMPLANTS: None. SPECIMEN REMOVED: None. COMPLICATIONS: None. ESTIMATED BLOOD LOSS: 100 mL. FINAL RECOMMENDATIONS: 1. Continue aspirin 81 mg daily for life and Plavix 75 mg daily for at least 3 months. 2. Continue optimal medical therapy and risk factor control. 3. Plan for staged intervention to the left external iliac artery in the future. 4. Follow up in clinic 2 weeks postprocedure. MD LILO Dc/ALLA /[id number]
== END | disposition home or self-care (01) ==
LOC: CATH LAB 06:11
PROVIDERS: ATTEND Internal Medicine
DX: I25.118 Atherosclerotic heart disease of native coronary artery with other forms of angina pectoris (principal); I70.212 Atherosclerosis of native arteries of extremities with intermittent claudication, left leg; Z01.812 Encounter for preprocedural laboratory examination; Z79.82 Long term (current) use of aspirin; E11.9 Type 2 diabetes mellitus without complications; I25.2 Old myocardial infarction; Z88.6 Allergy status to analgesic agent; Z88.5 Allergy status to narcotic agent; Z88.8 Allergy status to other drugs, medicaments and biological substances; M19.90 Unspecified osteoarthritis, unspecified site; I10 Essential (primary) hypertension; Z83.3 Family history of diabetes mellitus; Z82.49 Family history of ischemic heart disease and other diseases of the circulatory system; Z84.1 Family history of disorders of kidney and ureter; Z79.84 Long term (current) use of oral hypoglycemic drugs
CPT/HCPCS: 36415; 37221; 75625; 75716; 76937 ×2; 80053; 85025; 85610; 93458; C1725 ×2; C1760; C1769 ×2; C1876 ×3; C1887; J1644; J2001; J2250; J3010; J7030; Q9967 ×2; 36247

== ENCOUNTER → 2019-03-25 | Day surgery (SDC) | payer MEDICARE ==
[2019-03-23 11:21] LABS: INR 0.92; PROTHROMBIN TIME 12.9 seconds (11.9-14.5)
[2019-03-23 11:22] LABS: BASOPHILS % 0.2 % (0.0-1.0); EOSINOPHILS # (AUTO) 0.2 (0.0-0.4); EOSINOPHILS % 4.2 % (0.0-6.0); HEMATOCRIT 37.7 % (34.2-44.1); HEMOGLOBIN 11.9 g/dL (12.0-16.0); LYMPHOCYTES # (AUTO) 1.3 (1.0-3.2); LYMPHOCYTES % 28.5 % (18.0-39.1); MEAN CORPUSCULAR HEMOGLOBIN 27.1 pg (28-32); MEAN CORPUSCULAR HGB CONC 31.6 g/dL (31-35); MEAN CORPUSCULAR VOLUME 85.9 fL (81-99); MONOCYTES # (AUTO) 0.5 (0.2-0.8); MONOCYTES % 11.6 % (4.4-11.3); NEUTROPHILS # (AUTO) 2.5 (2.1-6.9); NEUTROPHILS % 55.3 % (38.7-80.0); PLATELET COUNT 238 x10e3/uL (140-360); RED BLOOD COUNT 4.39 x10e6/uL (3.6-5.1)
[2019-03-23 11:28] LABS: ALBUMIN 3.5 g/dL (3.5-5.0); ANION GAP 11.5 mmol/L (8-16); CALCIUM 9.8 mg/dL (8.4-10.2); CREATININE, SERUM 1.3 mg/dL (0.57-1.11); POTASSIUM 4.5 mmol/L (3.5-5.1)
--- NOTE | 2019-03-23 17:26 | NUR ---
Dr. Cher Wilde notified of creatinine 1.30 and eGFR 49. No new orders at this time.
[~2019-03-25] VITALS: Ht 175.3 cm; Wt 122.9 kg
[2019-03-25] VITALS (14 sets, daily range): BP systolic 114–155; BP diastolic 66–99
[~2019-03-25] MED LIST changes: -CLOPIDOGREL BISULFATE 75 MG TAB ONE; +CLOPIDOGREL75 MG PO; -IOPAMIDOL 370 MG/ML 200 ML INFUS..BTL INJ ONE; +MORPHINE SULFATE INJ 4 MG/ML INJ 1ML ONE; +VERAPAMIL HCL 2.5 MG/ML 2 ML VIAL ONE
--- NOTE | 2019-03-25 13:13 | NUR ---
1313bedside report received from Dionna DOMINIQUE. Identifierx2.Alert oriented and appropriate, PERRLA, respirations even and unlabored to room air. Pulses x4 extremities equal and strong. Pedal pulses PT/DP X 4 doppler and marked. Cap fill brisk < 3 sec. Skin warm and dry integrity appears D/I IV 20g to left arm iv infusing via controller till 1liter up, presents healthy w/o s/s of infiltration or complaint. Abdomen soft and supple. pt offered toileting, denies need to urinate or defecate. No personal affects with patient. Family grandson Promise . Pt and family verbalizes understanding of POC. Currently w/o complaint of pain or need. Left Pedal and left radial TR band down at 230 dc home at 5pm. niecy/kelechi
--- NOTE | 2019-03-25 14:00 | NUR ---
1400p c/o pain to left leg 01/17 Medicated Morphine sulfate 2mg ivp with immediate relief Void qs Tolerated po intake. ds/rn
--- NOTE | 2019-03-25 15:00 | NUR ---
1500 Left TR band wrist RADIAL Compression removal: Initial Cuff volume 12 cc 1500 -2 cc Removed No hematoma/bleeding noted with normal neurovascular function. 1515 -3 cc Removed No hematoma/ bleeding noted with normal neurovascular function. 1530 -3cc Removed No hematoma/bleeding noted with normal neurovascular function. 1545 -2cc Removed No hematoma/ bleeding noted with normal neurovascular function. 1600 -2cc Air removal completed. Stasis achieved sterile 2x2,Tegaderm, Coban dressing No hematoma, bleeding noted with normal neurovascular function. Wrist splint in place. Pt instructed on POC. Ds/Rn
--- NOTE | 2019-03-25 15:00 | NUR ---
1500 left Pedal RADIAL Compression removal: Initial Cuff volume 11cc cc 1500p -2cc Removed No hematoma/bleeding noted with normal neurovascular function. 1515 -3cc Removed No hematoma/ bleeding noted with normal neurovascular function. 1530 -3cc Removed No hematoma/bleeding noted with normal neurovascular function. 1545 -4cc Removed No hematoma/ bleeding noted with normal neurovascular function. Air removal completed. Stasis achieved sterile 2x2,Tegaderm, Coban dressing No hematoma, bleeding noted with normal neurovascular function. Wrist splint in place. Pt instructed on POC. Ds/Rn
--- NOTE | 2019-03-25 16:00 | NUR ---
1600 states pain 12/17 medicated with Morphine 2mg ivp immediate relief from lower leg painper MD orders ds/rn
--- NOTE | 2019-03-25 17:30 | NUR ---
1730Pt meets DC criteria. Left pedal tr band dressing intact and left wrist dressing and splint intact.assessed for s/s of complication and presecence of hematoma. Skin warm, dry, no discolor, and pulses present. IV removed from XXXX. Distal tip appears intact. VS WNL. Pt denies pain, sob, or need at this time. Family at grandson here. Review of discharge paperwork and follow up instructions. verbalized understanding. Pt to wheelchair and transported to front of hospital. Transferred to private vehicle under own strength w/o incident with DC paperwork in hand. - ds/rn
--- NOTE | 2019-05-04 16:02 | Operative Report ---
DATE OF PROCEDURE: 03/25/2019 SURGEON: Paolo Wilde MD CARDIAC CATHETERIZATION REPORT INDICATIONS FOR PROCEDURE: Claudication. PREPROCEDURE ASSESSMENT: Risks, benefits, and alternatives of treatment were explained to the patient prior to the procedure. Informed consent was obtained as documented in the medical record. The patient was deemed to be an appropriate candidate for moderate sedation. PROCEDURES PERFORMED: 1. Abdominal aortography. 2. Unilateral peripheral angiography. 3. Third order catheter placement. 4. Arthrectomy of femoropopliteal. 5. Percutaneous transluminal angioplasty and stenting of left iliac. 6. Secondary thrombectomy. 7. Vascular closure device. 8. Moderate sedation 120 minutes. PROCEDURE IN DETAIL: The patient was brought to the cardiac catheterization laboratory in fasting state. Left wrist was prepped and draped in a sterile fashion. Access to the left radial artery was obtained using modified Seldinger technique. A 6-Cameroonian Slender sheath was inserted and then exchanged for 120 mm destination sheath. This was advanced into the abdominal aorta. Abdominal aortography was performed. The left common iliac artery was wired using the [place] Advantage wire and the sheath was advanced into the left common iliac artery. We attended to locate and wire the proximal cap of the TEST CENTER MANAGER of the left iliac artery. However, the cath was ambiguous and attempts were difficult due to poor support and angulation of the proximal catheterization, so we decided to change to pedal access, and attempt retrograde crossing. For this, 5-Cameroonian slender sheath was inserted into the left dorsalis pedis artery under ultrasound guidance using modified Seldinger technique. We were able to cross the TEST CENTER MANAGER with a combination of 0.035 and 0.014 wires using a Seeker and Teleport catheter along with Fielder XT, Confianza, and [place] Advantage wires. After crossing into the abdominal aorta, we confirmed intraluminal passage by performing IVUS. Once good wire positioning, an intraluminal passage was confirmed. We performed arthrectomy of the left common femoral artery using a Diamondback 360 system, 2.0 classic bur, followed by balloon angioplasty with 6.0 x 150 mm balloon, which yielded well. We then performed stenting with 8.0 x 80 mm and 8.0 x 26 mm stents. IVUS was performed, which showed excellent stent expansion and apposition. Both sheaths were removed and TR band device was applied for hemostasis. There was some evidence of thrombus post arthrectomy, so secondary thrombectomy had to be performed to do removal of sheath. The patient tolerated the procedure well. There were no immediate complications. ACT near 300 was maintained throughout the procedure using IV boluses of heparin. FINDINGS: TEST CENTER MANAGER of the left common iliac and external iliac artery as well as common femoral artery, successful recanalization, and stenting of the left iliac and common femoral CTOs. GRAFTS AND IMPLANTS: Two balloon expandable stents placed in the left external iliac arteries. SPECIMENS REMOVED: None. ESTIMATED BLOOD LOSS: 100 mL. COMPLICATIONS: None. FINAL RECOMMENDATIONS: 1. Continue dual antiplatelet therapy for at least 3 months with aspirin and Plavix. 2. Follow up in clinic 2 weeks post discharge. MD LILO Dc/ALLA /[id number]
== END | disposition home or self-care (01) ==
LOC: CATH LAB 07:10
PROVIDERS: ATTEND Internal Medicine
DX: I73.9 Peripheral vascular disease, unspecified (principal); E11.9 Type 2 diabetes mellitus without complications; I20.8 Other forms of angina pectoris; I10 Essential (primary) hypertension; E78.2 Mixed hyperlipidemia; Z88.6 Allergy status to analgesic agent; Z01.812 Encounter for preprocedural laboratory examination; Z79.02 Long term (current) use of antithrombotics/antiplatelets; Z79.84 Long term (current) use of oral hypoglycemic drugs; Z68.42 Body mass index [BMI] 45.0-49.9, adult; Z82.49 Family history of ischemic heart disease and other diseases of the circulatory system; Z83.3 Family history of diabetes mellitus
CPT/HCPCS: 36415; 37186; 37221; 37225; 75625; 75710; 76937; 80053; 85025; 85610; C1724; C1725; C1753; C1766; C1769 ×4; C1876 ×2; C1887 ×4; J1644; J2001; J2250; J2270; J3010; J7030; Q9967; 36247; 37252; 99152; 99153

== ENCOUNTER 2021-02-22 18:38 | Emergency (ER) | payer MEDICARE ==
[~2021-02-22] VITALS: Ht 172.7 cm; Wt 113.9 kg
[~2021-02-22 18:38] MED LIST changes: -FENTANYL CITRATE/PF 100MCG/2 ML INJ ONE; -HEPARIN SOD (PORCINE) 1000 UNIT/ML 30ML ONE; -HEPARIN SOD/SOD CHLORIDE 2,000 ML ONE; -IOPAMIDOL 300MG/ML 100 ML INFUS..BTL IV ONE; -LIDOCAINE HCL 2% LOCAL 20 ML VIAL ONE; -MIDAZOLAM HCL 2 MG/2 ML VIAL ONE; -MORPHINE SULFATE INJ 4 MG/ML INJ 1ML ONE; -NITROGLYCERIN/D5W 200 MCG/ML 250 ML ONE; -SODIUM CHLORIDE 0.9% 1000ML 1,000 ML ONE; -VERAPAMIL HCL 2.5 MG/ML 2 ML VIAL ONE
[2021-02-22] MEDS ORDERED: SODIUM CHLORIDE 0.9% 1000ML 1,000 ML IV STA (18:44)
[2021-02-22 19:10] LABS: BASOPHILS % 0.4 % (0.0-1.0); EOSINOPHILS # (AUTO) 0.1 (0.0-0.4); EOSINOPHILS % 2.3 % (0.0-6.0); HEMATOCRIT 40.7 % (34.2-44.1); HEMOGLOBIN 12.9 g/dL (12.0-16.0); LYMPHOCYTES # (AUTO) 1.4 (1.0-3.2); LYMPHOCYTES % 28.9 % (18.0-39.1); MEAN CORPUSCULAR HGB CONC 31.7 g/dL (31-35); MEAN CORPUSCULAR VOLUME 85.1 fL (81-99); MONOCYTES # (AUTO) 0.4 (0.2-0.8); NEUTROPHILS # (AUTO) 2.9 (2.1-6.9); NEUTROPHILS % 59.2 % (38.7-80.0); PLATELET COUNT 306 x10e3/uL (140-360); RED BLOOD COUNT 4.78 x10e6/uL (3.6-5.1); RED CELL DISTRIBUTION WIDTH 15.1 % (11.7-14.4)
[2021-02-22] MEDS ORDERED: KETOROLAC TROMETHAMINE 30 MG/ML VIAL IV STA (19:27)
[2021-02-22 19:29] LABS: ALANINE AMINOTRANSFERASE 15 IU/L (0-55); ALBUMIN 3.7 g/dL (3.5-5.0); ALBUMIN/GLOBULIN RATIO 0.9 (0.8-2.0); ALKALINE PHOSPHATASE 97 IU/L (40-150); ANION GAP 14.7 mmol/L (8-16); BLOOD UREA NITROGEN 11 mg/dL (7-26); BUN/CREATININE RATIO 9 (6-25); CALCIUM 9.5 mg/dL (8.4-10.2); CARBON DIOXIDE 26 mmol/L (22-29); CHLORIDE 106 mmol/L (98-107); CREATINE KINASE 112 IU/L (29-168); CREATININE, SERUM 1.29 mg/dL (0.57-1.11); EST GLOMERULAR FILTRATION RATE 50 ML/MIN (60-); GLUCOSE 110 mg/dL (74-118); POTASSIUM 3.7 mmol/L (3.5-5.1); SODIUM 143 mmol/L (136-145)
[2021-02-22] MEDS ORDERED: IOPAMIDOL 370 MG/ML 200 ML INFUS..BTL INJ ONE (19:46)
[2021-02-22] MEDS ORDERED: SODIUM CHLORIDE 0.9% 50ML 50 ML ONE (19:46)
[2021-02-22] MEDS ORDERED: DICYCLOMINE HCL20 MG PO (22:04)
== END 2021-02-22 22:45 | disposition home or self-care (01) ==
LOC: ER 18:44
DX: R10.32 Left lower quadrant pain (principal); E11.40 Type 2 diabetes mellitus with diabetic neuropathy, unspecified; I10 Essential (primary) hypertension; K21.9 Gastro-esophageal reflux disease without esophagitis; I73.9 Peripheral vascular disease, unspecified; E03.9 Hypothyroidism, unspecified
CPT/HCPCS: 36415; 74177; 80053; 82550; 82553; 83690; 84484; 85025; 99283; J7030; Q9967

== ENCOUNTER → 2021-06-14 | Outpatient (CLI) | payer MEDICARE ==
[~2021-06-14] MED LIST changes: +DICYCLOMINE HCL20 MG PO
== END ==
LOC: DX 09:50
PROVIDERS: ATTEND Obstetrics & Gynecology
DX: Z13.820 Encounter for screening for osteoporosis (principal)
CPT/HCPCS: 77080